=== PATIENT | male | born 1995 | race Caucasian/White ===

== ENCOUNTER 2018-07-19 03:01 | Emergency (ER) | payer OTHER ==
[~2018-07-19] VITALS: Ht 180.3 cm; Wt 99.8 kg
[2018-07-19 03:08] VITALS: Ht 180.3 cm; Wt 99.8 kg
[2018-07-19 03:41] VITALS: BP 140/74
== END 2018-07-19 03:41 | disposition home or self-care (01) ==
LOC: ED 03:01
DX: F41.9 Anxiety disorder, unspecified (principal); J45.909 Unspecified asthma, uncomplicated; F10.129 Alcohol abuse with intoxication, unspecified

== ENCOUNTER 2018-09-03 10:33 | Emergency (ER) | payer OTHER ==
[~2018-09-03] VITALS: Ht 182.9 cm; Wt 98.4 kg
[2018-09-03 10:47] VITALS: BP 143/92; Ht 182.9 cm; Wt 98.4 kg
== END 2018-09-03 12:15 | disposition home or self-care (01) ==
LOC: ED 10:33
DX: S93.402A Sprain of unspecified ligament of left ankle, initial encounter (principal); J45.909 Unspecified asthma, uncomplicated; F41.9 Anxiety disorder, unspecified; W50.2XXA Accidental twist by another person, initial encounter; Y93.67 Activity, basketball; Y92.310 Basketball court as the place of occurrence of the external cause; Y99.8 Other external cause status
CPT/HCPCS: Q0092

== ENCOUNTER 2018-10-04 20:52 | Emergency (ER) | payer MEDICAID ==
[~2018-10-04] VITALS: Ht 182.9 cm; Wt 101.2 kg
[2018-10-04 21:01] VITALS: Ht 182.9 cm; Wt 101.2 kg
[2018-10-04 21:23] VITALS: BP 150/99
== END 2018-10-04 21:28 | disposition home or self-care (01) ==
LOC: ED 20:52
DX: J02.9 Acute pharyngitis, unspecified (principal); F41.9 Anxiety disorder, unspecified; J45.909 Unspecified asthma, uncomplicated

== ENCOUNTER 2018-10-07 19:43 | Emergency (ER) | payer MEDICAID ==
[~2018-10-07] VITALS: Ht 182.9 cm; Wt 101.2 kg
[2018-10-07 19:53] VITALS: Ht 182.9 cm; Wt 101.2 kg
[2018-10-07 21:44] VITALS: BP 156/94
== END 2018-10-07 21:44 | disposition home or self-care (01) ==
LOC: ED 19:43
DX: R10.13 Epigastric pain (principal); J45.909 Unspecified asthma, uncomplicated; F41.9 Anxiety disorder, unspecified

== ENCOUNTER 2018-12-02 17:44 | Emergency (ER) | payer MEDICAID ==
[~2018-12-02] VITALS: Ht 182.9 cm; Wt 103.4 kg
[2018-12-02 17:48] VITALS: Ht 182.9 cm; Wt 103.4 kg
[2018-12-02 18:34] LABS: BASOPHIL % 0.6 % (0-2); PLATELET COUNT 356 x10^3mcL (130-400); RED CELL DISTRIBUTION WIDTH 13.3 % (11.5-14.5)
[2018-12-02 18:40] LABS: CALCIUM 9.1 mg/dL (8.5-10.1); CARBON DIOXIDE 32.2 mmol/L (21-32); CHLORIDE SERUM 102 mmol/L (98-107); GFR1 > 60 mL/min; GLUCOSE SERUM 116 mg/dL (74-106); POTASSIUM SERUM 3.8 mmol/L (3.5-5.1); SODIUM SERUM 140 mmol/L (136-145)
[2018-12-02 18:52] LABS: ALBUMIN 3.8 g/dL (3.4-5.0); ALKALINE PHOSPHATASE 129 U/L (46-116); ALT/SGPT 99 U/L (16-63); AST/SGOT 43 U/L (15-37); BILIRUBIN TOTAL 0.39 mg/dL (0.20-1.00)
[2018-12-02 19:35] VITALS: BP 147/77
== END 2018-12-02 19:35 | disposition home or self-care (01) ==
LOC: ED 17:44
PROVIDERS: Emergency Medicine
DX: H53.8 Other visual disturbances (principal); R53.1 Weakness; J02.9 Acute pharyngitis, unspecified; J45.909 Unspecified asthma, uncomplicated; F41.9 Anxiety disorder, unspecified
CPT/HCPCS: 36415

== ENCOUNTER 2019-01-23 22:39 | Emergency (ER) | payer OTHER ==
[2019-01-23 22:43] VITALS: Ht 182.9 cm
[2019-01-23 23:21] VITALS: BP 142/80
== END 2019-01-23 23:21 | disposition home or self-care (01) ==
LOC: ED 22:39
DX: S60.221A Contusion of right hand, initial encounter (principal); S60.414A Abrasion of right ring finger, initial encounter; S60.416A Abrasion of right little finger, initial encounter; J45.909 Unspecified asthma, uncomplicated; F41.9 Anxiety disorder, unspecified; W22.8XXA Striking against or struck by other objects, initial encounter; Y93.89 Activity, other specified; Y92.89 Other specified places as the place of occurrence of the external cause; Y99.8 Other external cause status

== ENCOUNTER 2019-03-04 22:34 | Emergency (ER) | payer OTHER ==
[2019-03-04 22:47] VITALS: BP 145/87; Ht 182.9 cm
== END 2019-03-05 00:33 | disposition home or self-care (01) ==
LOC: ED 22:34
DX: S00.83XA Contusion of other part of head, initial encounter (principal); Y04.8XXA Assault by other bodily force, initial encounter; Y93.89 Activity, other specified; Y92.89 Other specified places as the place of occurrence of the external cause; Y99.8 Other external cause status
CPT/HCPCS: J1885